=== PATIENT | female | born 1995 | race Caucasian/White ===

== ENCOUNTER 2016-05-20 22:02 | Emergency (ER) | payer BC ==
[~2016-05-20] VITALS: Ht 157.5 cm; Wt 59.1 kg
[~2016-05-20 22:02] MED LIST: ATIVAN 1MG T1 MG/TAB PO; BIRTH CONTROL PILLS; BYSTOLIC2.5 MG PO; BYSTOLIC5 MG PO; NORCO 325 MG-51 TAB PO
[2016-05-20 22:10] VITALS: TEMP 99
[2016-05-20] MEDS ORDERED: NUVARING VAG RING VG (22:46)
[2016-05-20] MEDS ORDERED: BYSTOLIC2.5 MG PO (22:47)
[2016-05-20] MEDS ORDERED: NORCO 325 MG-51 TAB PO (23:38)
[2016-05-21] VITALS: BP 12/80; PULSE 87
== END 2016-05-21 | disposition home or self-care (01) ==
LOC: COL.ER 22:02
DX: R07.9 Chest pain, unspecified (principal)

== ENCOUNTER 2017-07-30 16:23 | Emergency (ER) | payer BC ==
[~2017-07-30] VITALS: Ht 160 cm; Wt 72.7 kg
[~2017-07-30 16:23] MED LIST changes: +NUVARING VAG RING VG
[2017-07-30 16:25] VITALS: BP 121/91; TEMP 99
[2017-07-30] MEDS ORDERED: CORLANOR5 MG PO (16:49)
[2017-07-30] MEDS ORDERED: DESYREL 50MG50 MG PO (16:50)
[2017-07-30] MEDS ORDERED: ABILIFY 10MG TA10 MG PO (16:50)
[2017-07-30 17:03] LABS: BASO # 0.1 (0.0-0.2); BASO % 0.9 % (0.0-2.0); EOS # 0.3 (0.0-0.7); EOS % 3.6 % (0-4.0); GRAN # 5.1 (1.4-6.5); GRAN % 61.8 % (42.2-75.2); LYMPH # 1.9 (1.2-3.4); LYMPH % 22.6 % (20.0-51.0); MEAN CELL VOLUME 91 fl (80.0-100.0); MEAN CORPUSCULAR HGB CONC 33 g/dl (33.0-37.0); MEAN PLATELET VOLUME 8.8 fl (7.4-10.4); MONO # 0.9 (0.1-0.6); MONO % 10.9 % (1.7-9.3); PLATELET COUNT 446 K/mm3 (130-400); RED BLOOD COUNT 3.76 M/mm3 (4.10-5.30); REDCELL DISTRIBUTION WIDTH-CV 13.5 % (11.5-14.5)
[2017-07-30 17:09] LABS: ALANINE AMINOTRANSFERASE 35 U/L (9-52); ALBUMIN 3.9 gm/dL (3.5-5.0); ALKALINE PHOSPHATASE 93 U/L (50-136); ANION GAP 11 mmol/L (7-16); AST,SGOT 23 U/L (15-37); BILIRUBIN,TOTAL 0.2 mg/dL (0.0-1.0); BLOOD UREA NITROGEN 13 mg/dL (7-17); CALCIUM 8.6 mg/dL (8.4-10.2); CARBON DIOXIDE 25 mmol/L (22-30); CHLORIDE 106 mmol/L (98-107); CREATININE, serum 0.76 mg/dL (0.52-1.25); GLUCOSE 96 mg/dL (74-106); LIPASE 145 U/L (23-300); POTASSIUM 3.7 mmol/L (3.4-5.0); SODIUM 143 mmol/L (137-145); TOTAL PROTEIN 7.6 gm/dL (6.4-8.2)
[2017-07-30 17:10] LABS: HEMATOCRIT 34.3 % (37.0-47.0); HEMOGLOBIN 11.3 g/dl (12.5-16.0); MEAN CORPUSCULAR HEMOGLOBIN 30 pg (27.0-31.0)
[2017-07-30 17:23] LABS: TROPONIN-I < 0.012 ng/mL (0.000-0.034)
[2017-07-30 18:18] VITALS: PULSE 88
== END 2017-07-30 18:18 | disposition home or self-care (01) ==
LOC: COL.ER 16:23
PROVIDERS: Emergency Medicine
DX: R07.89 Other chest pain (principal); I47.1 Supraventricular tachycardia; F32.9 Major depressive disorder, single episode, unspecified
CPT/HCPCS: Q9967

== ENCOUNTER 2018-02-09 18:59 | Emergency (ER) | payer BC ==
[~2018-02-09] VITALS: Ht 160 cm; Wt 72.7 kg
[~2018-02-09 18:59] MED LIST changes: +ABILIFY 10MG TA10 MG PO; +CORLANOR5 MG PO; +DESYREL 50MG50 MG PO
[2018-02-09 19:23] VITALS: TEMP 98.2
[2018-02-09] MEDS ORDERED: LAMICTAL200 MG PO (19:23)
[2018-02-09] MEDS ORDERED: NORCO 325 MG-51 TAB PO (19:24)
[2018-02-09] MEDS ORDERED: BYSTOLIC10 MG PO (19:24)
[2018-02-09 20:26] LABS: BASO # 0.1 (0.0-0.2); BASO % 0.6 % (0.0-2.0); EOS # 0.3 (0.0-0.7); GRAN # 5.7 (1.4-6.5); GRAN % 62.8 % (42.2-75.2); HEMOGLOBIN 11.7 g/dl (12.5-16.0); LYMPH # 2.1 (1.2-3.4); LYMPH % 23.6 % (20.0-51.0); MEAN CELL VOLUME 88 fl (80.0-100.0); MEAN CORPUSCULAR HEMOGLOBIN 29 pg (27.0-31.0); MEAN CORPUSCULAR HGB CONC 33 g/dl (33.0-37.0); MEAN PLATELET VOLUME 8.9 fl (7.4-10.4); MONO # 0.9 (0.1-0.6); MONO % 9.8 % (1.7-9.3); PLATELET COUNT 410 K/mm3 (130-400); RED BLOOD COUNT 4.04 M/mm3 (4.10-5.30); REDCELL DISTRIBUTION WIDTH-CV 14.6 % (11.5-14.5)
[2018-02-09 20:28] LABS: HEMATOCRIT 35.6 % (37.0-47.0)
[2018-02-09 20:35] LABS: ALANINE AMINOTRANSFERASE 29 U/L (9-52); ALBUMIN 4.2 gm/dL (3.5-5.0); ALKALINE PHOSPHATASE 100 U/L (50-136); ANION GAP 9 mmol/L (7-16); AST,SGOT 27 U/L (15-37); BILIRUBIN,TOTAL 0.4 mg/dL (0.0-1.0); BLOOD UREA NITROGEN 9 mg/dL (7-17); CALCIUM 8.9 mg/dL (8.4-10.2); CARBON DIOXIDE 24 mmol/L (22-30); CHLORIDE 109 mmol/L (98-107); CREATININE, serum 0.68 mg/dL (0.52-1.25); GLUCOSE 86 mg/dL (74-106); POTASSIUM 3.7 mmol/L (3.4-5.0); SODIUM 141 mmol/L (137-145); TOTAL PROTEIN 7.5 gm/dL (6.4-8.2)
[2018-02-09 20:36] LABS: PARTIAL THROMBOPLASTIN TIME 30.8 SECONDS (26.0-37.0)
[2018-02-09 20:49] LABS: TROPONIN-I < 0.012 ng/mL (0.000-0.034)
[2018-02-09 21:48] LABS: C-REACTIVE PROTEIN 0.7 mg/dL (0.0-0.9)
[2018-02-09 22:01] LABS: TROPONIN-I < 0.012 ng/mL (0.000-0.034)
[2018-02-09 22:30] VITALS: BP 113/79; PULSE 93
== END 2018-02-09 22:30 | disposition home or self-care (01) ==
LOC: COL.ER 18:59
PROVIDERS: Family Medicine
DX: R07.89 Other chest pain (principal); I10 Essential (primary) hypertension; F31.9 Bipolar disorder, unspecified; Z79.899 Other long term (current) drug therapy
CPT/HCPCS: J1885

== ENCOUNTER 2018-06-28 10:40 | Emergency (ER) | payer BC ==
[~2018-06-28] VITALS: Ht 160 cm; Wt 78.2 kg
[~2018-06-28 10:40] MED LIST changes: +BYSTOLIC10 MG PO; +LAMICTAL200 MG PO
[2018-06-28 10:46] VITALS: TEMP 98.8
[2018-06-28] MEDS ORDERED: CORLANOR7.5 MG PO (10:59)
[2018-06-28 13:03] VITALS: BP 114/69; PULSE 64
== END 2018-06-28 13:04 | disposition home or self-care (01) ==
LOC: COL.ER 10:40
DX: R07.9 Chest pain, unspecified (principal); I47.1 Supraventricular tachycardia; Z95.818 Presence of other cardiac implants and grafts

== ENCOUNTER 2018-11-06 19:10 | Emergency (ER) | payer BC ==
[~2018-11-06] VITALS: Ht 160 cm; Wt 72.7 kg
[~2018-11-06 19:10] MED LIST changes: +CORLANOR7.5 MG PO
[2018-11-06 19:17] VITALS: TEMP 97.8
[2018-11-06 20:15] LABS: BASO # 0.1 (0.0-0.2); BASO % 0.7 % (0.0-2.0); EOS # 0.1 (0.0-0.7); EOS % 1.1 % (0-4.0); GRAN # 6.4 (1.4-6.5); GRAN % 71.2 % (42.2-75.2); HEMOGLOBIN 11.3 g/dl (12.5-16.0); LYMPH # 1.6 (1.2-3.4); LYMPH % 17.6 % (20.0-51.0); MEAN CELL VOLUME 88 fl (80.0-100.0); MEAN CORPUSCULAR HEMOGLOBIN 29 pg (27.0-31.0); MEAN CORPUSCULAR HGB CONC 32 g/dl (33.0-37.0); MEAN PLATELET VOLUME 9.3 fl (7.4-10.4); MONO # 0.8 (0.1-0.6); MONO % 9.1 % (1.7-9.3); PLATELET COUNT 412 K/mm3 (130-400); RED BLOOD COUNT 3.97 M/mm3 (4.10-5.30); REDCELL DISTRIBUTION WIDTH-CV 15.3 % (11.5-14.5)
[2018-11-06 20:21] LABS: ALBUMIN 4.4 gm/dL (3.5-5.0); BILIRUBIN,TOTAL 0.7 mg/dL (0.0-1.0); CREATININE, serum 0.66 (0.52-1.25); POTASSIUM 3.5 mmol/L (3.4-5.0)
[2018-11-06 20:33] LABS: HEMATOCRIT 35.1 % (37.0-47.0)
[2018-11-06] MEDS ORDERED: FLEXERIL 1010 MG/TAB PO (21:54)
[2018-11-06 22:19] VITALS: BP 116/90; PULSE 69
== END 2018-11-06 22:21 | disposition home or self-care (01) ==
LOC: COL.ER 19:10
PROVIDERS: Emergency Medicine
DX: R07.89 Other chest pain (principal); R00.2 Palpitations; Z86.79 Personal history of other diseases of the circulatory system
CPT/HCPCS: J1885; Q9967

== ENCOUNTER 2020-01-05 18:58 | Emergency (ER) | payer OTHER ==
[~2020-01-05] VITALS: Ht 162.6 cm; Wt 75.0 kg
[~2020-01-05 18:58] MED LIST changes: +FLEXERIL 1010 MG/TAB PO
[2020-01-05 19:07] VITALS: TEMP 98.1
[2020-01-05 19:37] LABS: BASO # 0.1 (0.0-0.2); BASO % 0.7 % (0.0-2.0); EOS # 0.1 (0.0-0.7); EOS % 1.2 % (0-4.0); GRAN % 69.1 % (42.2-75.2); HEMATOCRIT 39.9 % (37.0-47.0); HEMOGLOBIN 12.9 g/dl (12.5-16.0); LYMPH # 2.3 (1.2-3.4); LYMPH % 19.7 % (20.0-51.0); MEAN CELL VOLUME 88 fl (80.0-100.0); MEAN CORPUSCULAR HEMOGLOBIN 28 pg (27.0-31.0); MEAN CORPUSCULAR HGB CONC 32 g/dl (33.0-37.0); MEAN PLATELET VOLUME 8.9 fl (7.4-10.4); MONO % 8.9 % (1.7-9.3); PLATELET COUNT 539 K/mm3 (130-400); RED BLOOD COUNT 4.54 M/mm3 (4.10-5.30); REDCELL DISTRIBUTION WIDTH-CV 15.2 % (11.5-14.5)
[2020-01-05 19:52] LABS: ALANINE AMINOTRANSFERASE 17 U/L (4-34); ALBUMIN 4.9 gm/dL (3.5-5.0); ALKALINE PHOSPHATASE 113 U/L (50-136); ANION GAP 13 mmol/L (7-16); AST,SGOT 26 U/L (15-37); BILIRUBIN,TOTAL 0.4 mg/dL (0.0-1.0); BLOOD UREA NITROGEN 10 mg/dL (7-17); CALCIUM 9.4 mg/dL (8.4-10.2); CARBON DIOXIDE 23 mmol/L (22-30); CHLORIDE 105 mmol/L (98-107); CREATININE, serum 0.66 (0.52-1.25); GLUCOSE 90 mg/dL (74-106); POTASSIUM 3.9 mmol/L (3.4-5.0); SODIUM 141 mmol/L (137-145); TOTAL PROTEIN 8.7 gm/dL (6.4-8.2)
[2020-01-05 20:05] LABS: TROPONIN-I < 0.012 ng/mL (0.000-0.035)
[2020-01-05] MEDS ORDERED: TENORMIN 2525 MG/TAB PO (21:09)
[2020-01-05 21:32] VITALS: BP 120/78; PULSE 82
== END 2020-01-05 21:31 | disposition home or self-care (01) ==
LOC: COL.ER 18:58
PROVIDERS: Nurse Practitioner Primary Care
DX: R00.2 Palpitations (principal)